=== PATIENT | female | born 1945 | race Caucasian/White ===

== ENCOUNTER 2017-02-16 10:23 | Inpatient (IN) | payer MEDICARE ==
[~2017-02-16] VITALS: Ht 157.5 cm; Wt 72.7 kg
[2017-02-16] MEDS ORDERED: ONDANSETRON 2MG/ML, 2ML IVPush ONE (11:30)
[2017-02-16] MEDS ORDERED: SODIUM CHLORIDE FLUSH 10ML SYR IVF ONE (11:30)
[2017-02-16 11:43] LABS: HEMOGLOBIN 12.9 g/dL (11.7-16.4); WHITE BLOOD COUNT 7.3 x10^3/uL (3.4-10)
[2017-02-16 11:56] LABS: BLOOD UREA NITROGEN 14 mg/dL (7-18)
[2017-02-16] MEDS ORDERED: ONDANSETRON ODT 4 MG ONE (11:56)
[2017-02-16] MEDS ORDERED: GABA300C10 PO (12:18)
[2017-02-16] MEDS ORDERED: ATOR40TA78 PO (12:18)
[2017-02-16] MEDS ORDERED: ATEN100T PO (12:18)
[2017-02-16] MEDS ORDERED: LANS30CA PO (12:18)
[2017-02-16] MEDS ORDERED: TIZA4CAP PO (12:19)
[2017-02-16] MEDS ORDERED: TRAM50TA2 PO (12:19)
[2017-02-16] MEDS ORDERED: METF1000 PO (12:19)
[2017-02-16] MEDS ORDERED: VALS1TAB28 PO (12:19)
[2017-02-16] MEDS ORDERED: SODIUM CHLORIDE 0.9% 1,000 ML IV ONE (12:30)
[2017-02-16] MEDS ORDERED: ONDANSETRON ODT 4 MG PO ONE (12:30)
[2017-02-16] MEDS ORDERED: hydrALAzine 20 MG/ML, 1ML IVPush PRN ×2 (13:30→20:30)
[2017-02-16] MEDS ORDERED: ACETAMINOPHEN 325 MG TABLET PO PRN ×2 (13:30→20:30)
[2017-02-16 14:05] LABS: BLOOD UREA NITROGEN 13 mg/dL (7-18)
[2017-02-16] MEDS ORDERED: SODIUM CHLORIDE 0.9% 1,000 ML IV SCH (14:30)
[2017-02-16 15:35] VITALS: BP_SYST 125; BP_SYST 145; BP_SYST 147; BP_DIAS 75; BP_DIAS 81; BP_DIAS 86
[2017-02-16] MEDS: HEPARIN 5,000 UNITS/ML, 1ML SQ SCH ×2 (15:43→20:46)
[2017-02-16] MEDS: INSULIN ASPART 100 UNITS/ML, PEN SQ-INSULIN SCH ×2 (16:00→20:46)
[2017-02-16] MEDS: ONDANSETRON ODT 4 MG PO PRN (17:14)
[2017-02-16 17:18] LABS: BLOOD UREA NITROGEN 13 mg/dL (7-18)
[2017-02-16 19:03] VITALS: BP 130/79
[2017-02-16 19:04] VITALS: BP 125/77
[2017-02-16 19:05] VITALS: BP 133/78
[2017-02-16 20:55] LABS: POTASSIUM,URINE RANDOM 12 mmol/L
[2017-02-16] MEDS: TIZANIDINE 4MG TABLET PO SCH (20:55)
[2017-02-16] MEDS: ATORVASTATIN 40 MG TABLET PO SCH (20:56)
[2017-02-16 20:58] VITALS: BP_SYST 121; BP_SYST 147; BP_SYST 149; BP_DIAS 81; BP_DIAS 87
[2017-02-16 21:59] LABS: BLOOD UREA NITROGEN 15 mg/dL (7-18)
[2017-02-17 01:45] VITALS: BP_SYST 139; BP_SYST 140; BP_SYST 144; BP_DIAS 82; BP_DIAS 84; BP_DIAS 90
[2017-02-17 02:02] LABS: BLOOD UREA NITROGEN 17 mg/dL (7-18)
[2017-02-17 05:08] LABS: HEMATOCRIT 39.3 % (34.6-47.8); HEMOGLOBIN 13.1 g/dL (11.7-16.4); WHITE BLOOD COUNT 6.8 x10^3/uL (3.4-10)
[2017-02-17 05:21] LABS: BLOOD UREA NITROGEN 15 mg/dL (7-18)
[2017-02-17] MEDS: HEPARIN 5,000 UNITS/ML, 1ML SQ SCH ×3 (05:24→20:41)
[2017-02-17] MEDS ORDERED: MAGNESIUM SULFATE PMX 2GM/50ML 50 ML IV ONE (06:00)
[2017-02-17] MEDS: ONDANSETRON ODT 4 MG PO PRN (06:29)
[2017-02-17] MEDS: INSULIN ASPART 100 UNITS/ML, PEN SQ-INSULIN SCH ×4 (07:00→20:42)
[2017-02-17 07:25] VITALS: BP 125/73
[2017-02-17] MEDS ORDERED: PANTOPROZOLE 40MG TABLET PO SCH (07:30)
[2017-02-17] MEDS ORDERED: ATENOLOL 100 MG TABLET PO SCH (09:00)
[2017-02-17] MEDS: ATENOLOL 100 MG TABLET PO SCH (09:10)
[2017-02-17] MEDS: TIZANIDINE 4MG TABLET PO SCH ×2 (09:10→20:41)
[2017-02-17] MEDS: PANTOPROZOLE 40MG TABLET PO SCH (09:10)
[2017-02-17 09:27] LABS: BLOOD UREA NITROGEN 13 mg/dL (7-18)
[2017-02-17] MEDS: SODIUM CHLORIDE 0.9% 1,000 ML IV SCH ×2 (12:42→12:58)
[2017-02-17] MEDS ORDERED: SODIUM CHLORIDE 0.9% 1,000 ML IV SCH (14:30)
[2017-02-17 15:55] VITALS: BP 106/67
[2017-02-17 19:45] VITALS: BP_SYST 120; BP_SYST 130; BP_SYST 133; BP_DIAS 74; BP_DIAS 77; BP_DIAS 80
[2017-02-17] MEDS: ATORVASTATIN 40 MG TABLET PO SCH (20:41)
[2017-02-18] MEDS ORDERED: DIPHENHYDRAMINE 25 MG CAPSULE ONE (00:08)
[2017-02-18] MEDS ORDERED: DIPHENHYDRAMINE 25 MG CAPSULE PO ONE ×2 (00:30→23:00)
[2017-02-18 02:19] VITALS: BP 121/69
[2017-02-18] MEDS: HEPARIN 5,000 UNITS/ML, 1ML SQ SCH ×3 (05:38→21:48)
[2017-02-18 05:43] LABS: HEMATOCRIT 36.1 % (34.6-47.8); HEMOGLOBIN 12.1 g/dL (11.7-16.4); WHITE BLOOD COUNT 6.2 x10^3/uL (3.4-10)
[2017-02-18 06:03] LABS: BLOOD UREA NITROGEN 13 mg/dL (7-18)
[2017-02-18] MEDS: INSULIN ASPART 100 UNITS/ML, PEN SQ-INSULIN SCH ×4 (07:00→21:00)
[2017-02-18 07:05] VITALS: BP 115/66
[2017-02-18] MEDS: SODIUM CHLORIDE 0.9% 1,000 ML IV SCH ×2 (09:25→09:31)
[2017-02-18] MEDS: TIZANIDINE 4MG TABLET PO SCH ×2 (09:25→21:49)
[2017-02-18] MEDS: ATENOLOL 100 MG TABLET PO SCH (09:25)
[2017-02-18] MEDS: PANTOPROZOLE 40MG TABLET PO SCH (09:25)
[2017-02-18 13:18] VITALS: BP 117/71
[2017-02-18 19:01] VITALS: BP 124/64
[2017-02-18] MEDS: ATORVASTATIN 40 MG TABLET PO SCH (21:49)
[2017-02-19 02:26] VITALS: BP 130/80
[2017-02-19] MEDS: HEPARIN 5,000 UNITS/ML, 1ML SQ SCH (05:22)
[2017-02-19 06:59] VITALS: BP 149/79
[2017-02-19] MEDS: INSULIN ASPART 100 UNITS/ML, PEN SQ-INSULIN SCH (07:00)
[2017-02-19] MEDS: TIZANIDINE 4MG TABLET PO SCH (08:12)
[2017-02-19] MEDS: PANTOPROZOLE 40MG TABLET PO SCH (08:12)
[2017-02-19] MEDS: ATENOLOL 100 MG TABLET PO SCH (08:12)
[2017-02-19 09:21] LABS: BLOOD UREA NITROGEN 9 mg/dL (7-18)
[2017-02-19] MEDS ORDERED: SODI1TAB PO (11:22)
[2017-02-19] MEDS ORDERED: SODIUM CHLORIDE 0.9% 1,000 ML IV SCH ×2 (14:30)
== END 2017-02-19 13:00 | disposition home or self-care (01) | DRG 683 ==
LOC: ED 11:57 → EDIP 12:34 → 4WST 14:33 → DCLOUNGE 02-19 12:40
PROVIDERS: ADMIT Internal Medicine; ATTEND Internal Medicine
DX: N17.9 Acute kidney failure, unspecified (principal); N39.0 Urinary tract infection, site not specified; E11.9 Type 2 diabetes mellitus without complications; E87.1 Hypo-osmolality and hyponatremia; I16.0 Hypertensive urgency; I25.10 Atherosclerotic heart disease of native coronary artery without angina pectoris; I10 Essential (primary) hypertension; Z88.5 Allergy status to narcotic agent; Z82.49 Family history of ischemic heart disease and other diseases of the circulatory system; Z90.10 Acquired absence of unspecified breast and nipple; Z85.3 Personal history of malignant neoplasm of breast; Z95.5 Presence of coronary angioplasty implant and graft
CPT/HCPCS: 36415; 70450; 71010; 80048; 81003; 82040; 82436; 82570; 82962; 83036; 83735; 83930; 83935; 84133; 84295; 84300; 84436; 84443; 85025; 93005; 99285; J1644; J1815; Q0162; J3475; J7030; Q0163

== ENCOUNTER 2018-11-06 02:03 | Inpatient (IN) | payer MEDICARE ==
[~2018-11-06] VITALS: Ht 157.5 cm; Wt 58.6 kg
[2018-11-08 12:55] VITALS: BP 142/80
== END 2018-11-08 16:00 | disposition home or self-care (01) | DRG 335 ==
LOC: ED 04:05 → EDIP 04:12 → ED 04:44 → 4NOR 06:57 → DCLOUNGE 11-08 15:45
PROVIDERS: ADMIT Internal Medicine; ATTEND Internal Medicine
PROC: 0DN80ZZ Release Small Intestine, Open Approach (ICD-10-PCS; principal; 2018-11-06)
PROC: 0D9670Z Drainage of Stomach with Drainage Device, Via Natural or Artificial Opening (ICD-10-PCS; 2018-11-06)
DX: K56.50 Intestinal adhesions [bands], unspecified as to partial versus complete obstruction (principal); K65.9 Peritonitis, unspecified; E87.1 Hypo-osmolality and hyponatremia; R18.8 Other ascites; Z88.6 Allergy status to analgesic agent; E11.9 Type 2 diabetes mellitus without complications; I10 Essential (primary) hypertension; I25.10 Atherosclerotic heart disease of native coronary artery without angina pectoris; K21.9 Gastro-esophageal reflux disease without esophagitis; Z79.82 Long term (current) use of aspirin; Z79.84 Long term (current) use of oral hypoglycemic drugs; Z79.899 Other long term (current) drug therapy; Z82.49 Family history of ischemic heart disease and other diseases of the circulatory system; Z85.3 Personal history of malignant neoplasm of breast; Z90.11 Acquired absence of right breast and nipple; Z90.710 Acquired absence of both cervix and uterus; Z95.5 Presence of coronary angioplasty implant and graft
CPT/HCPCS: 36415; 74018; 74177; 80048; 80053; 81001; 82962; 83690; 84484; 85025; 87086; 93005; 96374; 96375; 96376; 99285; G0378; J1100; J1650; J2250; J2405; J2704; J3010; C9113; J0330; J1815; J2270; J3490; J7030